=== PATIENT | female | born 1955 | race Caucasian/White ===

== ENCOUNTER 2021-03-22 15:27 | Emergency (ER) | payer OTHER ==
[2021-03-22] MEDS ORDERED: KEFLEX250 MG PO (23:06)
== END 2021-03-22 23:18 | disposition home or self-care (01) ==
LOC: FER 15:27
DX: S62.633B Displaced fracture of distal phalanx of left middle finger, initial encounter for open fracture (principal); I10 Essential (primary) hypertension; E11.9 Type 2 diabetes mellitus without complications; Z23 Encounter for immunization; Z88.0 Allergy status to penicillin; W23.1XXA Caught, crushed, jammed, or pinched between stationary objects, initial encounter; Y92.009 Unspecified place in unspecified non-institutional (private) residence as the place of occurrence of the external cause
CPT/HCPCS: 73140; 90471; 90715; 96365; 96375; J0690; J2250; J2405

== ENCOUNTER 2021-12-22 16:58 | Emergency (ER) | payer OTHER ==
[~2021-12-22 16:58] MED LIST: KEFLEX250 MG PO
[2021-12-22 17:30] LABS: BASOPHIL 0.6 % (0-2); EOSINOPHIL 0.3 % (0-7); HCT 40.6 % (37.0-47.0); HGB 13.4 g/dl (12.5-16.0); LYMPHOCYTE 10.3 % (15-48); MCH 29.1 pg (25.0-31.0); MCV 88.3 fL (78.0-100.0); MONOCYTE 7.6 % (0-12); MPV 10.5 fL (6.0-9.5); NEUTROPHIL 79.6 % (41-80); NRBC 0; PLT 333 K/uL (150-400); WBC 11.2 K/uL (4.0-10.5)
[2021-12-22 17:48] LABS: ALBUMIN 2.9 g/dL (3.4-5.0); BILIRUBIN - TOTAL 0.6 mg/dL (0.2-1.0); BUN/CREAT RATIO (CALC) 35.2 RATIO; CREATININE 0.54 mg/dL (0.51-0.95); POTASSIUM 3.8 mmol/L (3.5-5.1); TOTAL PROTEIN 8.9 g/dL (6.4-8.2)
[2021-12-22 17:51] LABS: LACTIC ACID 1.1 mmol/L (0.4-1.9)
[2021-12-22 20:20] LABS: BILIRUBIN NEGATIVE (NEGATIVE); BLOOD 2+ Ery/uL (NEGATIVE); CLARITY CLEAR (CLEAR); COLOR YELLOW (YELLOW); GLUCOSE (U) 2+ mg/dL (NORMAL); LEUKOCYTES NEGATIVE Leu/uL (NEGATIVE); NITRITE NEGATIVE (NEGATIVE); PROTEIN 1+ mg/dL (NEGATIVE); SPECIFIC GRAVITY 1.015 (1.001-1.030); UROBILINOGEN 0.2 mg/dL (0.2-1.0)
[2021-12-22 20:34] LABS: BACTERIA 1+; URINARY WBC 20-50
[2021-12-23 02:01] LABS: BUN/CREAT RATIO (CALC) 35.7 RATIO; CREATININE 0.42 mg/dL (0.51-0.95)
[2021-12-23 02:02] LABS: POTASSIUM 5.3 mmol/L (3.5-5.1)
== END 2021-12-23 05:00 | disposition other institution (70) ==
LOC: FER 16:58
PROVIDERS: Emergency Medicine
DX: E11.10 Type 2 diabetes mellitus with ketoacidosis without coma (principal); N13.6 Pyonephrosis; I10 Essential (primary) hypertension; Z20.822 Contact with and (suspected) exposure to COVID-19; Z88.0 Allergy status to penicillin; Z88.2 Allergy status to sulfonamides; Z79.84 Long term (current) use of oral hypoglycemic drugs
CPT/HCPCS: 36415; 36600; 71045; 80048; 80053; 81001; 82009; 82803; 83605; 83690; 84145; 85025; 87040; 87076; 87088; 87186; 93005; J1170; J1885; J1956; J2405; J2550; J3480; J7030; Q9967; U0002